=== PATIENT | female | born 1940 | race Caucasian/White ===

== ENCOUNTER 2017-08-13 17:52 | Emergency (ER) | payer MEDICARE, MEDICAID ==
--- NOTE | 2017-08-13 18:25 | UC ---
Rectal Pain HPI - HPI Summary HPI Summary: Pt presents with rectal pain and pain in her lower abdomen. Pt is accompanied by her daughter in law. Pt tells me that she is visiting from [facility] and since her arrival 5 days ago, she has had very little appetite and has not had a bowel movement. In addition, she tells me that she has developed rectal pain and feels a bulge around her anus when she wipes. Over the last day she has developed lower and periumbilical abdominal pain. Her daughter in law says that they have had to "force her to eat or drink almost everything" and that pt will only eat a few bites of toast and few sips of water before becoming nauseous and refuses anything more. Pt has not seen a PCP in many years and has never had a colonoscopy. She did "vaginal surgery" and a tubal ligation many years ago as well as surgery on her left shoulder. Currently she is in significant pain in her lower abdomen and anal region. She has not taken anything for the pain, but her son has made her a "belly cocktail at home" of unknown ingredients. She denies fever, chills, SOB, chest pain, headache, dizziness, dysuria, hematuria, rectal bleeding, or vomiting. - History Of Current Complaint Chief Complaint: UCAbdominalPain Stated Complaint: SOFT TISSUE Time Seen by Provider: 08/13/17 18:24 Hx Obtained From: Patient, Family/Administrative Analyst Onset/Duration: Gradual Onset Timing: Constant Severity Initially: Severe Severity Currently: Severe Pain Intensity: 10 Pain Scale Used: 0-10 Numeric Character: Sharp, Dull, Burning Aggravating Factor(s): Bowel Movement, Sitting - Allergies/Home Medications Allergies/Adverse Reactions: Allergies Allergy/AdvReac Type Severity Reaction Status Date / Time No Known Allergies Allergy Verified 08/13/17 18:00 Home Medications: Home Medications NK [No Home Medications Reported] 08/13/17 [History Confirmed 08/13/17] PMH/Surg Hx/FS Hx/Imm Hx - Surgical History Surgical History: Yes Surgery Procedure, Year, and Place: Tubal ligation. Left shoulder surgery - Family History Known Family History: Positive: Unknown - Social History Occupation: Retired Lives: Alone Alcohol Use: None Substance Use Type: None Smoking Status (MU): Never Smoked Tobacco - Immunization History Most Recent Influenza Vaccination: none Review of Systems Constitutional: Negative Skin: Negative Eyes: Negative ENT: Negative Respiratory: Negative Cardiovascular: Negative Gastrointestinal: Abdominal Pain - Lower and periumbilical, Nausea, Other - Rectal pain Genitourinary: Negative Motor: Negative Neurovascular: Negative Musculoskeletal: Negative Neurological: Negative Psychological: Negative All Other Systems Reviewed And Are Negative: Yes Physical Exam Triage Information Reviewed: Yes Appearance: Ill-Appearing, Pain Distress Vital Signs: Initial Vital Signs Temp 98.4 F 08/13/17 17:55 Pulse 90 08/13/17 17:55 Resp 16 08/13/17 17:55 BP 146/105 08/13/17 17:55 Pulse Ox 97 08/13/17 17:55 Vital Signs Reviewed: Yes Neck: Positive: Supple, Nontender, No Lymphadenopathy Respiratory: Positive: Chest non-tender, Lungs clear, Normal breath sounds, No respiratory distress, No accessory muscle use Cardiovascular: Positive: RRR, No Murmur, Pulses Normal Abdomen Description: Positive: Soft, Distended, Other: - TTP hypogastric, LLQ, RLQ, and periumbilical. Rectal exam revealed a 5mm external hemorrhoid that was TTP. Intact sphincter tone. No stool in vault.. Negative: CVA Tenderness (R), CVA Tenderness (L), Pulsatile Mass Bowel Sounds: Positive: Hypoactive Psychological: Positive: Age Appropriate Behavior Skin: Negative: rashes Rectal Pain Course/Dx - Course Course Of Treatment: I am concerned about a potential bowel obstruction given patients early satiety, nausea, abdominal pain, and lack of BM for at least 4 days. I had a discussion with the patient and her daughter in law, advising them to seek further evaluation in the ED for her pain. They were agreeable to this and the daughter in law will drive her tonight. - Differential Dx/Diagnosis Differential Diagnosis/HQI/PQRI: Hemorrhoid(s), Other - Bowel obstruction Provider Diagnoses: Abdominal pain with distension. Rectal pain. External hemorrhoid. Nausea. Early satiety Discharge - Discharge Plan Condition: Stable Disposition: OTHER Discharge Disposition Comment: To [facility] ED by private vehicle Referrals: No Primary Care Phys,NOPCP [Primary Care Provider] - Additional Instructions: The provider that examined you has advised you to seek further evaluation in the ED regarding your abdominal pain. If symptoms worsen or new symptoms occur while on the way to the ER, please call 911.
[2017-08-13 18:42] VITALS: BP 153/71
== END 2017-08-13 18:52 ==
LOC: UCEAST 17:52
DX: R10.30 Lower abdominal pain, unspecified (principal); R10.33 Periumbilical pain; R14.0 Abdominal distension (gaseous); K62.89 Other specified diseases of anus and rectum; K64.4 Residual hemorrhoidal skin tags; R11.0 Nausea; R68.81 Early satiety
CPT/HCPCS: 99202; G0463

== ENCOUNTER 2017-08-13 19:08 | Emergency (ER) | payer MEDICARE, MEDICAID ==
[2017-08-13] MEDS ORDERED: Lidocaine 2% JELLY* 10 ML JELLY TOPICAL ONE (21:46)
[2017-08-13] MEDS ORDERED: Lidocaine 2% JELLY* 6 ML JELLY TOPICAL ONE ×2 (22:48)
[2017-08-13 23:24] VITALS: BP 156/77
--- NOTE | 2017-08-14 21:54 | ED ---
Arsalan Mccord Gabriel, scribed for Des Hansen MD on 08/13/17 at 2144 . Abdominal Pain/Female - HPI Summary HPI Summary: This patient is a 77 year old F presenting to [facility] with a chief complaint of rectal pain since today. Patient reports constipation and nausea. Patient denies vomiting. Patient states she cannot pass stool and when she tries it just exacerbates her hemorrhoids. She has used hemorrhoid cream with no relief. - History of Current Complaint Chief Complaint: EDRectalPain Stated Complaint: RECTAL AND ABD PAIN-SENT F [facility] Time Seen by Provider: 08/13/17 21:25 Hx Obtained From: Patient Onset/Duration: Still Present Timing: Constant Pain Intensity: 8 Pain Scale Used: 0-10 Numeric Aggravating Factor(s): Other: - BM Associated Signs and Symptoms: Positive: Constipation, Nausea. Negative: Vomiting Allergies/Adverse Reactions: Allergies Allergy/AdvReac Type Severity Reaction Status Date / Time No Known Allergies Allergy Verified 08/13/17 18:00 PMH/Surg Hx/FS Hx/Imm Hx Previously Healthy: No Endocrine/Hematology History: Denies: Hx Diabetes Cardiovascular History: Denies: Hx Hypertension Respiratory History: Reports: Hx Asthma Infectious Disease History: No Infectious Disease History: Denies: Traveled Outside the [place] in Last 30 Days - Family History Known Family History: Negative: Diabetes - Social History Alcohol Use: None Hx Substance Use: No Substance Use Type: Reports: None Hx Tobacco Use: No Smoking Status (MU): Never Smoked Tobacco Review of Systems Negative: Fever Positive: Nausea, Other - rectal pain, constipation. Negative: Vomiting All Other Systems Reviewed And Are Negative: Yes Physical Exam - Summary Physical Exam Summary: Appearance: Well appearing, no pain distress Skin: warm, dry, reflects adequate perfusion Head/face: normal Eyes: EOMI, SHANIKA ENT: normal Neck: supple, non-tender Respiratory: CTA, breath sounds present Cardiovascular: RRR, pulses symmetrical Abdomen:, soft Mild RLQ pain Bowel: present Rectal: Small inflamed non thrombosed external hemorrhoid with small laceration , no internal hemorrhoid no gross blood or stool Musculoskeletal: normal, strength/ROM intact Neuro: normal, sensory motor intact, A&Ox3 Vital Signs On Initial Exam: Initial Vitals Temp Pulse Resp BP Pulse Ox 97.7 F 82 18 164/71 97 08/13/17 19:14 08/13/17 19:14 08/13/17 19:14 08/13/17 19:14 08/13/17 19:14 Diagnostics - Vital Signs Vital Signs Temp Pulse Resp BP Pulse Ox 08/13/17 19:14 97.7 F 82 18 164/71 97 - Laboratory Lab Statement: Any lab studies that have been ordered have been reviewed, and results considered in the medical decision making process. Abdominal Pain Fem Course/Dx - Course Course Of Treatment: small inflammed but non-thrombosed hemorrhoid with a tiny area that likely bled recently. Tx symptomatically. - Diagnoses Provider Diagnoses: External hemorrhoids with other complication, Rectal pain Discharge - Discharge Plan Condition: Good Disposition: HOME Prescriptions: Docusate CAP* [Colace Cap*] 100 mg PO BID #20 cap Hydrocortisone SUPP* [Anusol HC Supp*] 25 mg KS BID #10 supp Lidocaine 4% GEL* [Topicaine 4% GEL*] 1 applic TOPICAL SEE INSTRUCTIONS PRN 4 Days #1 tube PRN Reason: Pain Patient Education Materials: Hemorrhoids (ED) Referrals: Non Staff,Doctor [Primary Care Provider] - Additional Instructions: Soft diet. Use stool softener until well. Return with bleeding, increased pain, worse or other concerns as discussed. Call your doctor, Dr Sunshine for follow up. The documentation as recorded by the Arsalan peterson Gabriel accurately reflects the service I personally performed and the decisions made by me, Des Hansen MD.
== END 2017-08-13 23:15 | disposition home or self-care (01) ==
LOC: ED 19:08
DX: K64.4 Residual hemorrhoidal skin tags (principal); K62.89 Other specified diseases of anus and rectum
CPT/HCPCS: 99283; A9270-GY

== ENCOUNTER 2019-08-23 09:41 | Emergency (ER) | payer MEDICARE, MEDICAID ==
--- NOTE | 2019-08-23 10:32 | UC ---
Lower Extremity/Ankle HPI - HPI Summary HPI Summary: 79 yo female presents, accompanied by daughter, with LEFT hip pain. 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 Daughter tells me that they recently took a car ride from [place] 2 weeks ago for thanksgiving and just got back last week. For the last 4- 5 days pt has had increased left hip pain that is worse with movement and weight bearing. She has been taking OTC arthritis medicine with no relief. Denies fall, injury, numbness, tingling, saddle anesthesia, loss of bowel/ bladder control, constipation, dysuria. - History of Current Complaint Stated Complaint: L HIP PAIN Time Seen by Provider: 08/23/19 10:31 Hx Obtained From: Patient Onset/Duration: Gradual Onset Severity Initially: Moderate Severity Currently: Severe Pain Intensity: 10 Pain Scale Used: 0-10 Numeric Aggravating Factor(s): Standing, Ambulation Alleviating Factor(s): Rest - Allergies/Home Medications Allergies/Adverse Reactions: Allergies Allergy/AdvReac Type Severity Reaction Status Date / Time No Known Allergies Allergy Verified 08/23/19 10:46 PMH/Surg Hx/FS Hx/Imm Hx - Additional Past Medical History Additional PMH: None - Surgical History Surgical History: None - Family History Known Family History: Negative: Diabetes - Social History Occupation: Retired Alcohol Use: None Substance Use Type: None Smoking Status (MU): Never Smoked Tobacco - Immunization History Most Recent Influenza Vaccination: none Review of Systems All Other Systems Reviewed And Are Negative: No Constitutional: Positive: Negative Skin: Positive: Negative Respiratory: Positive: Negative Cardiovascular: Positive: Negative Neurovascular: Positive: Negative Musculoskeletal: Positive: Other: - Left hip pain Neurological: Positive: Negative Psychological: Positive: Negative Physical Exam - Summary Physical Exam Summary: GENERAL: NAD. WDWN. No pain distress. SKIN: No rashes, sores, lesions, or open wounds. NECK: Supple. FROM. Nontender. No lymphadenopathy. CHEST: CTAB. No r/r/w. No accessory muscle use. Breathing comfortably and in no distress. CV: RRR. Pulses intact. Cap refill <2seconds MSK: LEFT HIP: Mild TTP about left hip joint. Pain in joint with adduction of hip. Negative SLR b/l. Positive HAYLEE for groin pain LEFT. Strength 5/5 B/L LEs including dorsiflexion and plantar flexion. FROM B/L LEs. No edema. NTTP lumbar spine NEURO: Alert. Sensations intact B/L LEs L3-S1. Reflexes intact PSYCH: Age appropriate behavior. Triage Information Reviewed: Yes Vital Signs: Vital Signs: Temp Pulse Resp BP Pulse Ox 97.6 F 78 17 146/77 98 08/23/19 10:43 08/23/19 10:43 08/23/19 10:43 08/23/19 10:43 08/23/19 10:43 Vital Signs Reviewed: Yes Diagnostics - Radiology Hip XR Radiology Interpretation Completed By: Radiologist Summary of Radiographic Findings: IMPRESSION: #. No radiographic evidence for LEFT hip fracture. As x-rays may be negative with nondisplaced hip fracture if there is persistent clinical concern MRI or in setting of contraindication to MRI or limitation in emergent access to MRI CT would be suggested. #. Mild bilateral hip joint osteoarthritis. Assessment for joint space narrowing would be more accurate with a weightbearing view. Lower Extremity Course/Dx - Course Course Of Treatment: XR as above. Suspect arthritis pain. Advised to continue her OTC arthritis pain medication. Will rx for a short supply of tramadol and encourage gentle hip exercises. Daughter states that pt will be going back to [place] in a couple of days and will likely not follow up with PT or Ortho here, but will when she gets back home. - Differential Dx/Diagnosis Provider Diagnosis: Hip pain Discharge ED - Sign-Out/Discharge Documenting (check all that apply): Patient Departure All imaging exams completed and their final reports reviewed: Yes - Discharge Plan Condition: Stable Disposition: HOME Prescriptions: traMADol TAB* [Ultram*] 50 mg PO Q12H PRN #8 tab MDD 2 PRN Reason: Pain - Severe Patient Education Materials: Hip Pain (ED) Referrals: Non Staff,Doctor [Medical Doctor] - Additional Instructions: If you develop a fever, shortness of breath, chest pain, new or worsening symptoms - please call your PCP or go to the ED immediately. I recommend that you call Orthopedics at the number below to schedule an appointment within 1 week for further evaluation of your hip pain - Billing Disposition and Condition Condition: STABLE Disposition: Home
[2019-08-23 10:46] VITALS: BP 146/77
== END 2019-08-23 11:40 | disposition home or self-care (01) ==
LOC: UCEAST 09:41
DX: M25.552 Pain in left hip (principal); M16.0 Bilateral primary osteoarthritis of hip
CPT/HCPCS: 99212; G0463